=== PATIENT | female | born 1970 ===

== ENCOUNTER → 2019-02-03 21:36 | Outpatient (REF) | payer OTHER, SELFPAY ==
[2019-02-03 23:39] LABS: HIV 1 and 2 Antibody NEGATIVE (NEGATIVE); Hep C Virus Ab w/Reflex Quant NEGATIVE s/c (NEGATIVE)
[2019-02-03 23:52] LABS: Urine N gonorrhoeae NOT DETECTED
[2019-02-03 23:53] LABS: Urine Chlamydia NOT DETECTED
[2019-02-05 18:29] LABS: HSV 2 IGG AB < 0.90 index (< 0.90); HSV1IGG < 0.90 index (< 0.90)
[2019-02-07 21:42] LABS: RPR Screen Nonreactive (Nonreactive)
== END ==
LOC: LAB 21:36
PROVIDERS: Visit Provider Family Medicine
DX: Z11.3 Encounter for screening for infections with a predominantly sexual mode of transmission (principal); Z11.4 Encounter for screening for human immunodeficiency virus [HIV]; Z20.5 Contact with and (suspected) exposure to viral hepatitis
CPT/HCPCS: 36415; 86592; 86695; 86696; 86703; 86780; 86803; 87491; 87591